=== PATIENT | female | born 1985 | race African-American/Black ===

== ENCOUNTER 2018-08-01 09:02 | Emergency (ER) | payer SELFPAY ==
[~2018-08-01] VITALS: Ht 165.1 cm; Wt 97.0 kg
[2018-08-01] MEDS ORDERED: HYDROCODONE/ACETAMINOPHEN 5/325MG TABLET PO ONE (09:30)
[2018-08-01 10:08] VITALS: BP 119/84
== END 2018-08-01 10:20 | disposition home or self-care (01) ==
LOC: ER 10:17
DX: K04.7 Periapical abscess without sinus (principal); K02.9 Dental caries, unspecified
CPT/HCPCS: 99283